=== PATIENT | male | born 1955 | race African-American/Black ===

== ENCOUNTER 2022-06-07 10:42 | Inpatient (IN) | payer MEDICAID ==
[~2022-06-07] VITALS: Ht 180.3 cm; Wt 118.4 kg
[2022-06-07 17:40] LABS: BASOPHILS % 0.8 % (0.0-2.0); EOSINOPHILS % 0.5 % (0.0-5.0); HEMATOCRIT. 38.5 % (42.0-52.0); HEMOGLOBIN. 12.8 g/dL (14.0-18.0); LYMPHOCYTES % 24.5 % (20.0-50.0); MEAN CORPUSCULAR HEMOGLOBIN 30.1 pg (28.0-32.0); MEAN CORPUSCULAR VOLUME 90.4 fL (80.0-94.0); MONOCYTES % 7.6 % (2.0-8.0); NEUTROPHILS % 66.6 % (40.0-76.0); PLATELET 266 x1000/uL (130-400); RED BLOOD CELL COUNT 4.26 mill/uL (4.7-6.1)
[2022-06-07 17:44] LABS: INR 1.5; PROTHROMBIN TIME 15.6 sec (9.6-11.0)
[2022-06-07 17:56] LABS: CHLORIDE 104 mEq/L (98-107)
[2022-06-07] MEDS ORDERED: FUROSEMIDE 40MG/4ML VIAL IVP ONE (19:00)
[2022-06-07] MEDS ORDERED: FUROSEMIDE 40MG/4ML VIAL IVP NR (22:45)
[2022-06-07] MEDS ORDERED: CLONIDINE 0.1MG TABLET PO PRN (23:45)
[2022-06-07] MEDS ORDERED: HYDRALAZINE 20MG/ML VIAL IV PRN (23:45)
[2022-06-07] MEDS ORDERED: IPRATROPIUM/ALBUTEROL 0.5-3(2.5)MG/3ML NEB NEB SCH (23:45)
[2022-06-07] MEDS ORDERED: ACETAMINOPHEN 325MG TABLET PO PRN ×2 (23:45)
[2022-06-07] MEDS ORDERED: DOCUSATE SODIUM 100MG CAPSULE PO PRN (23:45)
[2022-06-07] MEDS ORDERED: MAGNESIUM/ALUMINUM HYDROXIDE/SIMETHICONE 30ML UDC PO PRN (23:45)
[2022-06-07] MEDS ORDERED: ALBUTEROL (0.083%) 2.5MG/3ML NEB HHN PRN (23:45)
[2022-06-07] MEDS ORDERED: IPRATROPIUM BROMIDE (0.02%) 0.5MG/2.5ML NEB HHN PRN (23:45)
[2022-06-07] MEDS ORDERED: IPRATROPIUM/ALBUTEROL 0.5-3(2.5)MG/3ML NEB NEB PRN (23:45)
[2022-06-07] MEDS ORDERED: ONDANSETRON HCL 4MG/2ML INJ IV PRN (23:45)
[2022-06-08] VITALS (9 sets, daily range): BP systolic 140–173; BP diastolic 72–104
[2022-06-08 02:24] LABS: FOLIC ACID (FOLATE) SERUM 10.4 ng/mL (>5.38)
[2022-06-08] MEDS ORDERED: HYDRALAZINE 20MG/ML VIAL IV NR (05:45)
[2022-06-08 07:11] LABS: BASOPHILS % 1.2 % (0.0-2.0); EOSINOPHILS % 0.2 % (0.0-5.0); HEMATOCRIT. 42.3 % (42.0-52.0); LYMPHOCYTES % 23.6 % (20.0-50.0); MEAN CORPUSCULAR HEMOGLOBIN 29.8 pg (28.0-32.0); MEAN CORPUSCULAR VOLUME 90.1 fL (80.0-94.0); MEAN PLATELET VOLUME 9.2 fl (7.4-10.4); PLATELET 265 x1000/uL (130-400)
[2022-06-08 07:12] LABS: CHLORIDE 105 mEq/L (98-107)
[2022-06-08 07:15] LABS: INR 1.5; PROTHROMBIN TIME 15.6 sec (9.6-11.0)
[2022-06-08 07:26] LABS: CREATINE KINASE 168 IU/L (39-308); HDL CHOLESTEROL 32 mg/dL (40-59); LDL CHOLESTEROL 57 mg/dL (5-100); T4 FREE 1.45 ng/dL (0.76-1.46); TOTAL IRON BINDING CAPACITY 338 ug/dL (250-450)
[2022-06-08] MEDS: LISINOPRIL 5MG TABLET PO NR ×2 (08:49→08:50)
[2022-06-08] MEDS: FUROSEMIDE 40MG/4ML VIAL IV SCH ×2 (08:49→08:50)
[2022-06-08] MEDS: LISINOPRIL 10MG TABLET PO SCH (08:53)
[2022-06-08] MEDS ORDERED: FAMOTIDINE 20MG/2ML VIAL IV SCH (09:00)
[2022-06-08] MEDS ORDERED: TERA10CA4 MT (09:55)
[2022-06-08] MEDS ORDERED: AMLO2.5T45 PO (09:55)
[2022-06-08 11:58] LABS: BG BASE EXCESS 1.4 mmol/L (-2.0-2.0); BG CARBOXYHEMOGLOBIN 0.9 % (0.5-1.5); BG DEOXYHEMOGLOBIN 2.8 % (0.0-5.0); BG FRACTION INSPIRED OXYGEN 32; BG HCO3 ACT 24.5 mmol/L (22.0-26.0); BG METHEMOGLOBIN 0.4 % (0.0-1.5); BG OXYGEN SATURATION 97.2 % (92.0-98.5); BG OXYHEMOGLOBIN 95.9 % (94.0-97.0); BG PCO2 34.5 mmHg (35.0-45.0); BG PO2 96.8 mmHg (75.0-100.0); BG SAMPLE SITE RIGHT RADIAL; BG TOTAL HEMOGLOBIN 14.7 g/dL (12.0-18.0); BG VENT MODE NASAL CANNULA
[2022-06-08 13:01] LABS: CLARITY URINE CLEAR (CLEAR); COLOR URINE YELLOW (YELLOW); KETONES URINE NEGATIVE (NEGATIVE); LEUKOCYTE ESTERASE URINE NEGATIVE (NEGATIVE); NITRITE URINE NEGATIVE (NEGATIVE); OCCULT BLOOD URINE NEGATIVE (NEGATIVE); PH URINE 7.5 (4.5-8.0); PROTEIN URINE NEGATIVE (NEGATIVE); SPECIFIC GRAVITY URINE 1.007 (1.005-1.030); UROBILINOGEN URINE 0.2 E.U./dL (0.2-1.0)
[2022-06-08 13:27] LABS: *AMPHETAMINES SCREEN URINE NEGATIVE (NEGATIVE); *BARBITURATES SCREEN URINE NEGATIVE (NEGATIVE); *BENZODIAZEPINES SCREEN URINE NEGATIVE (NEGATIVE); *COCAINE SCREEN URINE PRESUMTIVE POSITIVE (NEGATIVE); CANNABINOID URINE SCREEN NEGATIVE (NEGATIVE); METHADONE URINE SCREEN NEGATIVE (NEGATIVE); OPIATES URINE SCREEN NEGATIVE (NEGATIVE); PHENCYCLIDINE URINE SCREEN NEGATIVE (NEGATIVE)
[2022-06-08] MEDS: AMLODIPINE 10MG TABLET PO SCH (14:47)
[2022-06-08] MEDS: FAMOTIDINE 20MG TABLET PO SCH (20:08)
[2022-06-08] MEDS: ENOXAPARIN 30MG/0.3ML SYR SUBCUT SCH (20:09)
[2022-06-08] MEDS ORDERED: TERAZOSIN HCL 5MG CAPSULE PO SCH (21:00)
[2022-06-08] MEDS: IPRATROPIUM BROMIDE (0.02%) 0.5MG/2.5ML NEB HHN SCH (21:47)
[2022-06-08] MEDS: ALBUTEROL (0.083%) 2.5MG/3ML NEB HHN SCH ×2 (21:47→23:45)
[2022-06-09] VITALS: BP 126/69
[2022-06-09] MEDS: IPRATROPIUM BROMIDE (0.02%) 0.5MG/2.5ML NEB HHN SCH ×3 (02:25→15:18)
[2022-06-09] MEDS: ALBUTEROL (0.083%) 2.5MG/3ML NEB HHN SCH ×3 (02:25→15:18)
[2022-06-09 04:00] VITALS: BP 130/66
[2022-06-09 08:00] VITALS: BP 124/74
[2022-06-09] MEDS: AMLODIPINE 10MG TABLET PO SCH (10:12)
[2022-06-09] MEDS: LISINOPRIL 10MG TABLET PO SCH (10:12)
[2022-06-09] MEDS: FAMOTIDINE 20MG TABLET PO SCH (10:12)
[2022-06-09] MEDS: ENOXAPARIN 30MG/0.3ML SYR SUBCUT SCH (10:13)
[2022-06-09] MEDS: FUROSEMIDE 40MG/4ML VIAL IV SCH (10:26)
[2022-06-09 12:00] VITALS: BP 127/74
[2022-06-09 15:48] VITALS: BP 146/68
[2022-06-09 15:51] VITALS: BP 146/68
== END 2022-06-09 17:03 | disposition home or self-care (01) | DRG 194 ==
LOC: ER 10:42 → MICUSO 20:51 → 7EST 06-08 01:19
PROVIDERS: ADMIT Hospitalist; ATTEND Hospitalist
DX: I11.0 Hypertensive heart disease with heart failure (principal); E44.1 Mild protein-calorie malnutrition; D64.9 Anemia, unspecified; E66.9 Obesity, unspecified; Z20.822 Contact with and (suspected) exposure to COVID-19; F17.210 Nicotine dependence, cigarettes, uncomplicated; E78.5 Hyperlipidemia, unspecified; Z79.899 Other long term (current) drug therapy; Z68.36 Body mass index [BMI] 36.0-36.9, adult; I50.31 Acute diastolic (congestive) heart failure
CPT/HCPCS: 36415; 36600; 71045; 80053; 80061; 80305; 81003; 82375; 82550; 82553; 82607; 82728; 82746; 82805; 83036; 83540; 83550; 83880; 84145; 84439; 84443; 84484; 85025; 85379; 87426; 87804; 93005; 93306; 93970; 94640; 97162; 97166; 99285; C9803; J0360; J1650; J1940; J3490

== ENCOUNTER 2022-10-22 08:53 | Inpatient (IN) | payer MEDICARE, MEDICAID ==
[2022-10-22] VITALS (33 sets, daily range): BP systolic 91–107; BP diastolic 35–47; PULSE 70–87; RESP 16–36; TEMP 97.4–98.1
[~2022-10-22] VITALS: Ht 182.9 cm; Wt 90.7 kg
[~2022-10-22 08:53] MED LIST: AMLO2.5T45 PO; AMOX1TAB16 MT; FURO-151 MT; SPIR25TA MT
[2022-10-22] MEDS ORDERED: DEXTROSE 50% WATER 50ML SYRINGE IV ONE (09:12)
[2022-10-22] MEDS ORDERED: EPINEPHRINE 5 MG in SODIUM CHLORIDE 0.9% 245 ML IV PRN ×2 (09:15→09:30)
[2022-10-22] MEDS ORDERED: DEXT 10% WATER 1,000 ML IV ONE (09:15)
[2022-10-22] MEDS ORDERED: DEXT 10% WATER 1,000 ML IV SCH (09:30)
[2022-10-22] MEDS ORDERED: PROPOFOL 10MG/ML 100ML 100 ML IV ONE (10:00)
[2022-10-22 10:38] LABS: HEMATOCRIT. 33.8 % (42.0-52.0); HEMOGLOBIN. 10.2 g/dL (14.0-18.0); MEAN CORPUSCULAR HEMOGLOBIN 25.6 pg (28.0-32.0); MEAN CORPUSCULAR VOLUME 84.8 fL (80.0-94.0); MEAN PLATELET VOLUME 9.3 fl (7.4-10.4); PLATELET 200 x1000/uL (130-400); RED BLOOD CELL COUNT 3.98 mill/uL (4.7-6.1); RED CELL DISTRIBUTION WIDTH 20.3 % (11.6-14.6)
[2022-10-22 10:46] LABS: CHLORIDE 91 mEq/L (98-107)
[2022-10-22 10:55] LABS: INR 2.6; PROTHROMBIN TIME 26.6 sec (9.6-11.0)
[2022-10-22 10:58] LABS: ETHANOL BLOOD < 10 mg/dL (-10)
[2022-10-22] MEDS ORDERED: PIPERACILLIN/TAZ 3.375G PREMIX 50 ML IV SCH (11:00)
[2022-10-22] MEDS ORDERED: SODIUM BICARBONATE 100 MEQ in DEXTROSE 5% WATER 1,000 ML IV ONE (11:30)
[2022-10-22] MEDS ORDERED: SODIUM POLYSTYRENE SULFONATE 15 G/60 ML BOT NG NR (11:45)
[2022-10-22] MEDS ORDERED: ACETAMINOPHEN 325MG TABLET PO PRN ×2 (11:45)
[2022-10-22] MEDS ORDERED: ENOXAPARIN 40MG/0.4ML SYR SUBCUT SCH (11:45)
[2022-10-22] MEDS ORDERED: CLONIDINE 0.1MG TABLET PO PRN (11:45)
[2022-10-22] MEDS ORDERED: ONDANSETRON HCL 4MG/2ML INJ IV PRN (11:45)
[2022-10-22] MEDS ORDERED: IPRATROPIUM/ALBUTEROL 0.5-3(2.5)MG/3ML NEB HHN PRN (11:45)
[2022-10-22 11:57] LABS: PLATELET ESTIMATE NORMAL
[2022-10-22 12:05] LABS: BG BASE EXCESS -11.2 mmol/L (-2.0-2.0); BG CARBOXYHEMOGLOBIN 0.6 % (0.5-1.5); BG DEOXYHEMOGLOBIN 0.2 % (0.0-5.0); BG FRACTION INSPIRED OXYGEN 100; BG HCO3 ACT 13.1 mmol/L (22.0-26.0); BG METHEMOGLOBIN 0.4 % (0.0-1.5); BG OXYGEN SATURATION 99.8 % (92.0-98.5); BG OXYHEMOGLOBIN 98.8 % (94.0-97.0); BG PCO2 25.3 mmHg (35.0-45.0); BG PH 7.331 (7.350-7.450); BG PO2 363.8 mmHg (75.0-100.0); BG SAMPLE SITE LEFT RADIAL; BG TOTAL HEMOGLOBIN 11.8 g/dL (12.0-18.0); BG TOTAL RESPIRATORY RATE 29 b/min
[2022-10-22] MEDS ORDERED: MIDAZOLAM HCL 100 MG in SODIUM CHLORIDE 0.9% 80 ML IV PRN ×2 (12:15→12:30)
[2022-10-22] MEDS ORDERED: SODIUM BICARBONATE 100 MEQ in SODIUM CHLORIDE 0.45% 1,000 ML IV SCH (12:30)
[2022-10-22] MEDS ORDERED: MEROPENEM 500 MG in SODIUM CHLORIDE 0.9% 50 ML IV SCH (13:00)
[2022-10-22] MEDS: DEXT 5%/0.9% NACL 1,000 ML IV SCH (13:09)
[2022-10-22] MEDS ORDERED: DOXYCYCLINE 100 MG in DEXT 5% WATER 100 ML IV SCH (13:30)
[2022-10-22] MEDS ORDERED: VANCOMYCIN 1.25GM PMX (XELLIA) 250 ML IV SCH (14:00)
[2022-10-22 14:03] LABS: CREATINE KINASE MB FRACTION 8.1 ng/mL (0.5-3.6)
[2022-10-22] MEDS ORDERED: PROPOFOL 10MG/ML 100ML 100 ML IV SCH (14:26)
[2022-10-22] MEDS ORDERED: NOREPINEPHRINE 8 MG in DEXT 5% WATER 242 ML IV PRN ×2 (15:00→20:45)
[2022-10-22] MEDS ORDERED: DEXTROSE 50% WATER 50ML SYRINGE IV PRN (18:30)
[2022-10-22] MEDS: PROPOFOL 10MG/ML 100ML 100 ML IV PRN (20:29)
[2022-10-22] MEDS ORDERED: INSULIN LISPRO 100 UNITS/ML SUBCUT SCH (21:00)
[2022-10-22] MEDS ORDERED: BLOOD SUGAR DIAGNOSTIC STRIP TEST SCH (21:00)
[2022-10-22] MEDS: IPRATROPIUM/ALBUTEROL 0.5-3(2.5)MG/3ML NEB HHN SCH (21:03)
[2022-10-22] MEDS: PANTOPRAZOLE SODIUM 40 MG/VIAL IV SCH (22:01)
[2022-10-22 23:48] LABS: CREATINE KINASE MB FRACTION 7.7 ng/mL (0.5-3.6)
[2022-10-23] VITALS (101 sets, daily range): BP systolic 40–136; BP diastolic 36–81; PULSE 72–95; RESP 16–52; TEMP 97.4–98.7
[2022-10-23] MEDS: IPRATROPIUM/ALBUTEROL 0.5-3(2.5)MG/3ML NEB HHN SCH ×7 (00:11→23:54)
[2022-10-23] MEDS: BLOOD SUGAR DIAGNOSTIC STRIP TEST SCH ×4 (00:33→17:49)
[2022-10-23] MEDS: DOXYCYCLINE 100 MG in DEXT 5% WATER 100 ML IV SCH ×2 (02:53→14:02)
[2022-10-23] MEDS: MEROPENEM 500 MG in SODIUM CHLORIDE 0.9% 50 ML IV SCH ×2 (02:53→14:02)
[2022-10-23] MEDS: DEXT 5%/0.9% NACL 1,000 ML IV SCH ×2 (02:56→15:23)
[2022-10-23 05:55] LABS: HEMATOCRIT. 33.8 % (42.0-52.0); HEMOGLOBIN. 10.9 g/dL (14.0-18.0); MEAN CORPUSCULAR HEMOGLOBIN 25.7 pg (28.0-32.0); MEAN CORPUSCULAR VOLUME 79.8 fL (80.0-94.0); MEAN PLATELET VOLUME 8.6 fl (7.4-10.4); PLATELET 250 x1000/uL (130-400); RED BLOOD CELL COUNT 4.24 mill/uL (4.7-6.1); RED CELL DISTRIBUTION WIDTH 20.1 % (11.6-14.6)
[2022-10-23] MEDS: INSULIN LISPRO 100 UNITS/ML SUBCUT SCH ×4 (06:00→18:00)
[2022-10-23 06:20] LABS: CHLORIDE 95 mEq/L (98-107)
[2022-10-23 06:40] LABS: PHOSPHORUS 7.7 mg/dL (2.5-4.9)
[2022-10-23] MEDS ORDERED: LIDOCAINE HCL 1% 10 MG/ML 10ML VIAL ONE (07:20)
[2022-10-23] MEDS: PANTOPRAZOLE SODIUM 40 MG/VIAL IV SCH ×2 (08:34→21:18)
[2022-10-23] MEDS: PROPOFOL 10MG/ML 100ML 100 ML IV PRN (08:35)
[2022-10-23 09:04] LABS: BG BASE EXCESS 0.3 mmol/L (-2.0-2.0); BG FRACTION INSPIRED OXYGEN 40; BG HCO3 ACT 22.8 mmol/L (22.0-26.0); BG METHEMOGLOBIN 0.3 % (0.0-1.5); BG OXYHEMOGLOBIN 97.7 % (94.0-97.0); BG PCO2 30.2 mmHg (35.0-45.0); BG PH 7.495 (7.350-7.450); BG PO2 146.6 mmHg (75.0-100.0); BG SAMPLE SITE RIGHT RADIAL; BG TOTAL HEMOGLOBIN 12.2 g/dL (12.0-18.0); BG TOTAL RESPIRATORY RATE 22 b/min; BG VENT MODE VENT - AC
[2022-10-23] MEDS ORDERED: SODIUM POLYSTYRENE SULFONATE 15 G/60 ML BOT PO NR (09:30)
[2022-10-23] MEDS ORDERED: ALBUMIN HUMAN 25GM/100ML (25%) IV NR (09:30)
[2022-10-23 09:55] LABS: PLATELET ESTIMATE NORMAL
[2022-10-23 10:56] LABS: CLARITY URINE TURBID (CLEAR); COLOR URINE DARK YELLOW (YELLOW); KETONES URINE TRACE (NEGATIVE); LEUKOCYTE ESTERASE URINE 2+ (NEGATIVE); NITRITE URINE NEGATIVE (NEGATIVE); OCCULT BLOOD URINE 3+ (NEGATIVE); PROTEIN URINE 3+ (NEGATIVE); SPECIFIC GRAVITY URINE 1.038 (1.005-1.030)
[2022-10-23 11:30] LABS: *AMPHETAMINES SCREEN URINE NEGATIVE (NEGATIVE); *BARBITURATES SCREEN URINE NEGATIVE (NEGATIVE); *BENZODIAZEPINES SCREEN URINE NEGATIVE (NEGATIVE); *COCAINE SCREEN URINE PRESUMTIVE POSITIVE (NEGATIVE); CANNABINOID URINE SCREEN NEGATIVE (NEGATIVE); METHADONE URINE SCREEN NEGATIVE (NEGATIVE); OPIATES URINE SCREEN PRESUMTIVE POSITIVE (NEGATIVE); PHENCYCLIDINE URINE SCREEN NEGATIVE (NEGATIVE)
[2022-10-23] MEDS ORDERED: PROPOFOL 10MG/ML 100ML 100 ML IV PRN (21:15)
[2022-10-24] VITALS (79 sets, daily range): BP systolic 90–128; BP diastolic 32–77; PULSE 56–97; RESP 8–42; TEMP 97.4–98.8; O2SAT 99
[2022-10-24] MEDS: INSULIN LISPRO 100 UNITS/ML SUBCUT SCH ×4 (01:26→17:46)
[2022-10-24] MEDS: DOXYCYCLINE 100 MG in DEXT 5% WATER 100 ML IV SCH (02:31)
[2022-10-24] MEDS: MEROPENEM 500 MG in SODIUM CHLORIDE 0.9% 50 ML IV SCH (02:32)
[2022-10-24] MEDS: IPRATROPIUM/ALBUTEROL 0.5-3(2.5)MG/3ML NEB HHN SCH ×4 (03:29→22:12)
[2022-10-24 05:03] LABS: HEMATOCRIT. 30.8 % (42.0-52.0); MEAN CORPUSCULAR VOLUME 79.7 fL (80.0-94.0); PLATELET 216 x1000/uL (130-400); RED BLOOD CELL COUNT 3.86 mill/uL (4.7-6.1); RED CELL DISTRIBUTION WIDTH 20.3 % (11.6-14.6)
[2022-10-24] MEDS: DEXT 5%/0.9% NACL 1,000 ML IV SCH (05:24)
[2022-10-24 05:35] LABS: CHLORIDE 96 mEq/L (98-107)
[2022-10-24 05:47] LABS: PHOSPHORUS 7.5 mg/dL (2.5-4.9)
[2022-10-24] MEDS: BLOOD SUGAR DIAGNOSTIC STRIP TEST SCH ×4 (06:00→17:46)
[2022-10-24 06:06] LABS: NUCLEATED RED BLOOD CELLS 2 /100 WBC
[2022-10-24] MEDS: PANTOPRAZOLE SODIUM 40 MG/VIAL IV SCH ×2 (08:44→22:50)
[2022-10-24 09:16] LABS: BG BASE EXCESS 0.3 mmol/L (-2.0-2.0); BG CARBOXYHEMOGLOBIN 0.3 % (0.5-1.5); BG DEOXYHEMOGLOBIN 3.2 % (0.0-5.0); BG FRACTION INSPIRED OXYGEN 40; BG HCO3 ACT 23.8 mmol/L (22.0-26.0); BG METHEMOGLOBIN 0.3 % (0.0-1.5); BG OXYGEN SATURATION 96.8 % (92.0-98.5); BG OXYHEMOGLOBIN 96.2 % (94.0-97.0); BG PCO2 34.4 mmHg (35.0-45.0); BG PH 7.457 (7.350-7.450); BG PO2 92.7 mmHg (75.0-100.0); BG SAMPLE SITE RIGHT RADIAL; BG TOTAL HEMOGLOBIN 11.5 g/dL (12.0-18.0); BG VENT MODE VENT - SIMV
[2022-10-24 11:06] LABS: BG BASE EXCESS 0.3 mmol/L (-2.0-2.0); BG CARBOXYHEMOGLOBIN 0.8 % (0.5-1.5); BG DEOXYHEMOGLOBIN 2.3 % (0.0-5.0); BG FRACTION INSPIRED OXYGEN 40; BG HCO3 ACT 23.2 mmol/L (22.0-26.0); BG METHEMOGLOBIN 0.2 % (0.0-1.5); BG OXYGEN SATURATION 97.7 % (92.0-98.5); BG OXYHEMOGLOBIN 96.7 % (94.0-97.0); BG PCO2 31.9 mmHg (35.0-45.0); BG PH 7.479 (7.350-7.450); BG PO2 103.7 mmHg (75.0-100.0); BG SAMPLE SITE RIGHT RADIAL; BG TOTAL HEMOGLOBIN 12.6 g/dL (12.0-18.0); BG VENT MODE VENT - CPAP
[2022-10-24 13:43] LABS: PLATELET ESTIMATE NORMAL
[2022-10-24] MEDS ORDERED: LEVOFLOXACIN 750MG PREMIX 150 ML IV NR (14:00)
[2022-10-25] VITALS (15 sets, daily range): BP systolic 104–123; BP diastolic 42–67; PULSE 87–98; RESP 18–34; TEMP 96.9–98.2; O2SAT 95–99
[2022-10-25] MEDS: BLOOD SUGAR DIAGNOSTIC STRIP TEST SCH
[2022-10-25] MEDS: IPRATROPIUM/ALBUTEROL 0.5-3(2.5)MG/3ML NEB HHN SCH ×6 (00:05→21:59)
[2022-10-25] MEDS ORDERED: FUROSEMIDE 40MG/4ML VIAL IVP SCH (06:00)
[2022-10-25 07:14] LABS: HEMATOCRIT. 32.4 % (42.0-52.0); HEMOGLOBIN. 10.4 g/dL (14.0-18.0); MEAN CORPUSCULAR HEMOGLOBIN 25.8 pg (28.0-32.0); MEAN CORPUSCULAR VOLUME 80.1 fL (80.0-94.0); MEAN PLATELET VOLUME 7.8 fl (7.4-10.4); PLATELET 193 x1000/uL (130-400); RED BLOOD CELL COUNT 4.04 mill/uL (4.7-6.1); RED CELL DISTRIBUTION WIDTH 20.5 % (11.6-14.6)
[2022-10-25] MEDS: INSULIN LISPRO 100 UNITS/ML SUBCUT SCH ×5 (07:30→21:00)
[2022-10-25] MEDS: PANTOPRAZOLE SODIUM 40 MG/VIAL IV SCH (08:46)
[2022-10-25 09:26] LABS: PHOSPHORUS 7.7 mg/dL (2.5-4.9)
[2022-10-25] MEDS: GUAIFENESIN 600MG ER TABLET PO SCH ×2 (14:55→22:03)
[2022-10-25 17:10] LABS: PLATELET ESTIMATE NORMAL
[2022-10-25] MEDS: FAMOTIDINE 20MG/2ML VIAL IV SCH (22:03)
[2022-10-26] VITALS (18 sets, daily range): BP systolic 96–115; BP diastolic 40–60; PULSE 84–97; RESP 15–39; TEMP 96.9–98.7; O2SAT 92–99
[2022-10-26] MEDS: IPRATROPIUM/ALBUTEROL 0.5-3(2.5)MG/3ML NEB HHN SCH ×6 (00:39→20:10)
[2022-10-26 06:31] LABS: HEMATOCRIT. 32.5 % (42.0-52.0); HEMOGLOBIN. 10.6 g/dL (14.0-18.0); MEAN CORPUSCULAR VOLUME 80.1 fL (80.0-94.0); MEAN PLATELET VOLUME 7.7 fl (7.4-10.4); PLATELET 183 x1000/uL (130-400); RED BLOOD CELL COUNT 4.06 mill/uL (4.7-6.1); RED CELL DISTRIBUTION WIDTH 20.9 % (11.6-14.6)
[2022-10-26] MEDS: INSULIN LISPRO 100 UNITS/ML SUBCUT SCH ×2 (07:30→12:30)
[2022-10-26 08:11] LABS: PHOSPHORUS 7.9 mg/dL (2.5-4.9)
[2022-10-26] MEDS: GUAIFENESIN 600MG ER TABLET PO SCH ×2 (09:52→22:01)
[2022-10-26] MEDS: SERTRALINE HCL 25MG TABLET PO SCH (12:00)
[2022-10-26] MEDS ORDERED: LEVOFLOXACIN 500MG PREMIX 100 ML IV SCH (14:00)
[2022-10-26 16:30] LABS: PLATELET ESTIMATE NORMAL
[2022-10-27] VITALS (18 sets, daily range): BP systolic 101–129; BP diastolic 46–62; PULSE 91–114; RESP 18–39; TEMP 97.4–98.8; O2SAT 94–96
[2022-10-27] MEDS: IPRATROPIUM/ALBUTEROL 0.5-3(2.5)MG/3ML NEB HHN SCH ×6 (00:08→21:15)
[2022-10-27 07:18] LABS: HEMOGLOBIN. 10.7 g/dL (14.0-18.0); MEAN CORPUSCULAR HEMOGLOBIN 25.7 pg (28.0-32.0); MEAN CORPUSCULAR VOLUME 79.7 fL (80.0-94.0); MEAN PLATELET VOLUME 7.6 fl (7.4-10.4); PLATELET 190 x1000/uL (130-400); RED BLOOD CELL COUNT 4.14 mill/uL (4.7-6.1); RED CELL DISTRIBUTION WIDTH 21.2 % (11.6-14.6)
[2022-10-27 07:32] LABS: CHLORIDE 94 mEq/L (98-107)
[2022-10-27 07:41] LABS: PHOSPHORUS 7.8 mg/dL (2.5-4.9)
[2022-10-27 09:10] LABS: BG BASE EXCESS 0.1 mmol/L (-2.0-2.0); BG CARBOXYHEMOGLOBIN 0.7 % (0.5-1.5); BG DEOXYHEMOGLOBIN 16.2 % (0.0-5.0); BG FRACTION INSPIRED OXYGEN 28; BG HCO3 ACT 23.2 mmol/L (22.0-26.0); BG OXYGEN SATURATION 83.7 % (92.0-98.5); BG OXYHEMOGLOBIN 83.1 % (94.0-97.0); BG PCO2 32.4 mmHg (35.0-45.0); BG PH 7.473 (7.350-7.450); BG PO2 51.6 mmHg (75.0-100.0); BG SAMPLE SITE RIGHT RADIAL; BG TOTAL HEMOGLOBIN 11.3 g/dL (12.0-18.0); BG VENT MODE NASAL CANNULA
[2022-10-27] MEDS ORDERED: IPRATROPIUM/ALBUTEROL 0.5-3(2.5)MG/3ML NEB HHN PRN (09:15)
[2022-10-27] MEDS: GUAIFENESIN 600MG ER TABLET PO SCH ×2 (09:18→20:47)
[2022-10-27] MEDS: SERTRALINE HCL 25MG TABLET PO SCH (09:18)
[2022-10-27 11:42] LABS: PLATELET ESTIMATE NORMAL
[2022-10-27] MEDS: FAMOTIDINE 20MG/2ML VIAL IV SCH (20:48)
[2022-10-28] VITALS (16 sets, daily range): BP systolic 97–125; BP diastolic 52–63; PULSE 91–125; RESP 18–32; TEMP 97.6–98.3; O2SAT 87–96
[2022-10-28] MEDS: IPRATROPIUM/ALBUTEROL 0.5-3(2.5)MG/3ML NEB HHN SCH ×4 (00:39→12:16)
[2022-10-28 07:15] LABS: HEMATOCRIT. 32.1 % (42.0-52.0); HEMOGLOBIN. 10.4 g/dL (14.0-18.0); MEAN CORPUSCULAR VOLUME 80.1 fL (80.0-94.0); MEAN PLATELET VOLUME 7.4 fl (7.4-10.4); PLATELET 185 x1000/uL (130-400); RED CELL DISTRIBUTION WIDTH 21.6 % (11.6-14.6)
[2022-10-28 08:28] LABS: PHOSPHORUS 7.2 mg/dL (2.5-4.9)
[2022-10-28] MEDS ORDERED: SODIUM HYPOCHLORITE 0.125% 473ML SOLUTION TOP SCH (09:00)
[2022-10-28 09:09] LABS: BG BASE EXCESS 3.7 mmol/L (-2.0-2.0); BG CARBOXYHEMOGLOBIN 0.2 % (0.5-1.5); BG DEOXYHEMOGLOBIN 7.9 % (0.0-5.0); BG FRACTION INSPIRED OXYGEN 36; BG HCO3 ACT 27.3 mmol/L (22.0-26.0); BG METHEMOGLOBIN 0.3 % (0.0-1.5); BG OXYGEN SATURATION 92.1 % (92.0-98.5); BG OXYHEMOGLOBIN 91.6 % (94.0-97.0); BG PCO2 37.8 mmHg (35.0-45.0); BG PH 7.477 (7.350-7.450); BG PO2 64.9 mmHg (75.0-100.0); BG SAMPLE SITE RIGHT RADIAL; BG TOTAL HEMOGLOBIN 10.9 g/dL (12.0-18.0); BG VENT MODE NASAL CANNULA
[2022-10-28] MEDS: SERTRALINE HCL 25MG TABLET PO SCH (10:47)
[2022-10-28] MEDS: GUAIFENESIN 600MG ER TABLET PO SCH (10:47)
[2022-10-28] MEDS ORDERED: DILTIAZEM HCL 5MG/ML 5ML VIAL IV NR (14:30)
[2022-10-28] MEDS ORDERED: LEVOFLOXACIN 750MG PREMIX 150 ML IV SCH (15:00)
[2022-10-28] MEDS ORDERED: AMIODARONE HCL 150 MG in DEXT 5% WATER 100 ML IV SCH (15:00)
[2022-10-28 16:24] LABS: PLATELET ESTIMATE NORMAL
[2022-10-28] MEDS ORDERED: DILTIAZEM HCL 30MG TABLET PO SCH (18:00)
== END 2022-10-28 15:50 | DRG 871 ==
LOC: ER 08:59 → SUPCPDRO 10:00 → MICUSO 10:22 → 5EST 10-24 21:06
PROVIDERS: ADMIT Internal Medicine; ATTEND Internal Medicine
PROC: 5A1945Z Respiratory Ventilation, 24-96 Consecutive Hours (ICD-10-PCS; principal; 2022-10-22)
PROC: 0BH17EZ Insertion of Endotracheal Airway into Trachea, Via Natural or Artificial Opening (ICD-10-PCS; 2022-10-22)
PROC: 5A12012 Performance of Cardiac Output, Single, Manual (ICD-10-PCS; 2022-10-22)
PROC: 5A09357 Assistance with Respiratory Ventilation, Less than 24 Consecutive Hours, Continuous Positive Airway Pressure (ICD-10-PCS; 2022-10-22)
PROC: 06HY33Z Insertion of Infusion Device into Lower Vein, Percutaneous Approach (ICD-10-PCS; 2022-10-22)
PROC: 3E0A3GC Introduction of Other Therapeutic Substance into Bone Marrow, Percutaneous Approach (ICD-10-PCS; 2022-10-22)
DX: A41.59 Other Gram-negative sepsis (principal); E43 Unspecified severe protein-calorie malnutrition; G92.8 Other toxic encephalopathy; I46.9 Cardiac arrest, cause unspecified; J96.01 Acute respiratory failure with hypoxia; R65.21 Severe sepsis with septic shock; J15.0 Pneumonia due to Klebsiella pneumoniae; J69.0 Pneumonitis due to inhalation of food and vomit; N17.0 Acute kidney failure with tubular necrosis; I21.4 Non-ST elevation (NSTEMI) myocardial infarction; I50.32 Chronic diastolic (congestive) heart failure; E87.1 Hypo-osmolality and hyponatremia; D68.9 Coagulation defect, unspecified; I48.92 Unspecified atrial flutter; N39.0 Urinary tract infection, site not specified; L97.919 Non-pressure chronic ulcer of unspecified part of right lower leg with unspecified severity; L97.929 Non-pressure chronic ulcer of unspecified part of left lower leg with unspecified severity; E87.20 Acidosis, unspecified; Z66 Do not resuscitate; Z20.822 Contact with and (suspected) exposure to COVID-19; E16.2 Hypoglycemia, unspecified; R74.01 Elevation of levels of liver transaminase levels; I83.009 Varicose veins of unspecified lower extremity with ulcer of unspecified site; I11.0 Hypertensive heart disease with heart failure; I27.20 Pulmonary hypertension, unspecified; E87.5 Hyperkalemia; M17.11 Unilateral primary osteoarthritis, right knee; D64.9 Anemia, unspecified; E78.5 Hyperlipidemia, unspecified; I08.3 Combined rheumatic disorders of mitral, aortic and tricuspid valves; I73.9 Peripheral vascular disease, unspecified; B96.1 Klebsiella pneumoniae [K. pneumoniae] as the cause of diseases classified elsewhere; F14.10 Cocaine abuse, uncomplicated; F10.10 Alcohol abuse, uncomplicated; F43.21 Adjustment disorder with depressed mood; F17.210 Nicotine dependence, cigarettes, uncomplicated; Z82.49 Family history of ischemic heart disease and other diseases of the circulatory system; Z91.199 Patient's noncompliance with other medical treatment and regimen due to unspecified reason; Z79.899 Other long term (current) drug therapy; Z68.27 Body mass index [BMI] 27.0-27.9, adult
CPT/HCPCS: 31500; 36415; 36573; 36600; 71045; 71250; 76700; 80048; 80053; 80305; 80320; 81003; 82375; 82533; 82550; 82553; 82805; 82962; 83036; 83605; 83735; 83880; 84100; 84145; 84443; 84478; 84484; 85025; 86850; 86900; 87070; 87077; 87106; 87186; 87426; 92610; 93005; 93306; 93970; 94002; 94003; 94640; 94667; 97162; 99291; A6261; C9113; C9803; J0282; J1815; J1940; J1956; J2185; J2543; J2704; J3370; J3490; J7050; J7060; J7070; P9047; G0480